=== PATIENT | male | born 1985 | race Caucasian/White ===

== ENCOUNTER 2020-11-08 11:52 | Emergency (ER) | payer OTHER, SELFPAY ==
--- NOTE | 2020-11-08 12:23 | RAD REPORT ---
EXAM DESCRIPTION: CT - Head Brain Wo Cont - 11/08/2020 12:10 pm CLINICAL HISTORY: Alteration of awareness/confusion COMPARISON: None TECHNIQUE: Computed axial tomography of the head was obtained. IV contrast was not requested. All CT scans are performed using dose optimization technique as appropriate and may include automated exposure control or mA/KV adjustment according to patient size. FINDINGS: An intracranial bleed is not seen . The ventricles are normal in caliber. No extra-axial fluid collection is noted. Empty sella turcica Fluid within the sinuses/ mastoids is not seen. IMPRESSION: No acute intracranial abnormality is seen. If patient's symptoms persist MRI of the bra in would be recommended.
[2020-11-08] MEDS ORDERED: NA CHLORIDE 0.9% 1,000 ML ONE (12:27)
[2020-11-08 12:43] LABS: Absolute Lymphocytes (CBC) 2.1 K/uL (0.7-4.9); Basophils % 1.2 % (0-1.3); Hematocrit 46.1 % (39.6-49.0); Lymphocytes % 19.3 % (15.3-44.8); MPV 9.4 fL (7.6-11.3); RBC Red Blood Cell Count 5.13 M/uL (4.33-5.43)
[2020-11-08 12:45] LABS: Protime INR 1.1
[2020-11-08 12:56] LABS: ALT/SGPT 85 U/L (12-78); AST/SGOT 44 U/L (15-37); Albumin 4.1 g/dL (3.4-5.0); Alkaline Phosphatase 88 U/L (45-117); BUN Blood Urea Nitrogen 12 mg/dL (7-18); Bicarbonate 26 mmol/L (21-32); Bilirubin Direct 0.2 mg/dL (0-0.2); Bilirubin Total 0.8 mg/dL (0.2-1.0); Glucose Level 97 mg/dL (74-106); Potassium 4.8 mmol/L (3.5-5.1); Protein, Total 8.1 g/dL (6.4-8.2); Sodium Level 137 mmol/L (136-145); Troponin (Emerg Dept Use Only) < 0.02 ng/mL (0.0-0.045)
[2020-11-08 14:20] LABS: Urine Blood Negative (Negative); Urine Glucose Negative (Negative); Urine Protein 1+ (Negative); Urine Specific Gravity 1.015 (1.005-1.030)
[2020-11-08 14:45] LABS: Barbiturates NEGATIVE (NEGATIVE); Benzodiazepines NEGATIVE (NEGATIVE); Cocaine NEGATIVE (NEGATIVE); METHAMPHETAM NEGATIVE (NEGATIVE); Methadone NEGATIVE (NEGATIVE); Opiates NEGATIVE (NEGATIVE); Phencyclidine NEGATIVE (NEGATIVE); THC Cannibis NEGATIVE (NEGATIVE)
--- NOTE | 2020-11-08 15:34 | ER ---
Nurse's Notes [facility] Name: Qasim Lyn Age: 35 yrs Sex: Male : 1985 Arrival Date: 11/08/2020 Time: 11:53 Bed 5 Private MD: Diagnosis: Syncope and collapse Presentation: 11/08 11:53 Chief complaint: EMS states: Toned out for unresponsive in vehicle at [place] parking lot, hb BGL 68, improved after oral glucose but remains confused. Reported smoking meth a couple day ago. Coronavirus screen: At this time, the client does not indicate any symptoms associated with coronavirus-19. Ebola Screen: No symptoms or risks identified at this time. Initial Sepsis Screen: Does the patient meet any 2 criteria? No. Patient's initial sepsis screen is negative. Does the patient have a suspected source of infection? No. Patient's initial sepsis screen is negative. Risk Assessment: Do you want to hurt yourself or someone else? Patient reports no desire to harm self or others. Onset of symptoms was November 08, 2020. 11:53 Method Of Arrival: EMS: [facility] hb 11:53 Acuity: MELONIE 2 hb Historical: - Allergies: 11:55 No Known Allergies; hb - Immunization history:: Adult Immunizations up to date. - Social history:: Smoking status: Patient denies any tobacco usage or history of. Screenin:57 Abuse screen: Denies threats or abuse. Denies injuries from another. Nutritional hb screening: On. Tuberculosis screening: No symptoms or risk factors identified. Fall Risk Total Magallanes Fall Scale indicates Low Risk Score (25-44 pts). Fall prevention measures have been instituted. Placed close to Nursing Station Frequent Obs/Assesments occuring As available Patient and Family Educated on Fall Prevention Program and strategies. Assessment: 11:58 General: Appears in no apparent distress. Behavior is calm, cooperative. Pain: Denies hb pain. Neuro: Level of Consciousness is obeys commands, lethargic, Oriented to person, place, situation. Cardiovascular: Capillary refill < 3 seconds Patient's skin is warm and dry. Rhythm is sinus tachycardia. Respiratory: Respiratory effort is even, unlabored, Respiratory pattern is regular, symmetrical. GI: No signs and/or symptoms were reported involving the gastrointestinal system. : No signs and/or symptoms were reported regarding the genitourinary system. EENT: No signs and/or symptoms were reported regarding the EENT system. Derm: Skin is pink, warm \T\ dry. Musculoskeletal: No signs and/or symptoms reported regarding the musculoskeletal system. 13:00 Reassessment: Patient appears in no apparent distress at this time. Patient and/or hb family updated on plan of care and expected duration. Pain level reassessed. Patient is alert, oriented x 3, equal unlabored respirations, skin warm/dry/pink. 14:14 Reassessment: Patient appears in no apparent distress at this time. Patient and/or hb family updated on plan of care and expected duration. Pain level reassessed. Patient is alert, oriented x 3, equal unlabored respirations, skin warm/dry/pink. 15:15 Reassessment: Patient appears in no apparent distress at this time. Patient and/or hb family updated on plan of care and expected duration. Pain level reassessed. Patient is alert, oriented x 3, equal unlabored respirations, skin warm/dry/pink. 16:15 Reassessment: Patient appears in no apparent distress at this time. Patient and/or hb family updated on plan of care and expected duration. Pain level reassessed. Patient is alert, oriented x 3, equal unlabored respirations, skin warm/dry/pink. Vital Signs: 11:53 BP 143 / 89; Pulse 98; Resp 16; Temp 97.8; Pulse Ox 100% on R/A; Pain 0/10; hb 12:59 BP 123 / 81; Pulse 85; Resp 19; Pulse Ox 97% on R/A; hb 14:14 BP 134 / 85; Pulse 79; Resp 17; Pulse Ox 99% on R/A; hb 15:00 BP 126 / 86; Pulse 77; Resp 15; Pulse Ox 99% ; hb 16:00 BP 138 / 88; Pulse 75; Resp 17; Pulse Ox 100% on R/A; hb ED Course: 11:53 Patient arrived in ED. hb 11:55 Triage completed. hb 11:55 Bright Metzger PA is PHCP. [facility] 11:55 Milan López MD is Attending Physician. [facility] 11:55 Arm band placed on. hb 11:57 Patient has correct armband on for positive identification. Placed in gown. Bed in low hb position. Call light in reach. Side rails up X2. 12:06 Sunni Kent, RN is Primary Nurse. hb 12:09 CT Head Brain wo Cont In Process Unspecified. EDMS 12:16 Inserted saline lock: 20 gauge in right antecubital area, using aseptic technique. hb Blood collected. 13:50 Acetaminophen Sent. sv 16:35 No provider procedures requiring assistance completed. hb 16:35 IV discontinued, intact, bleeding controlled, No redness/swelling at site. hb Administered Medications: 12:32 Drug: NS 0.9% 1000 ml Route: IV; Rate: 1 bolus; Site: right antecubital; hb 13:32 Follow up: Response: No adverse reaction; IV Status: Completed infusion; IV Intake: hb 1000ml Intake: 13:32 IV: 1000ml; Total: 1000ml. hb Outcome: 15:34 Discharge ordered by MD. humphrey 16:35 Discharged to home ambulatory, with family. hb 16:35 Condition: stable 16:35 Discharge instructions given to patient, Instructed on discharge instructions, follow up and referral plans. medication usage, Demonstrated understanding of instructions, follow-up care, medications. 16:52 Patient left the ED. Signatures: Dispatcher [employer] Xuan Bach, RN SESAR Bright Metzger PA PA jmm Smirch, Shelby, RN RN Sunni Kent, RN RN hb
--- NOTE | 2020-11-08 15:34 | EDPHYS ---
Physician Documentation [facility] Name: Qasim Lyn Age: 35 yrs Sex: Male : 1985 Arrival Date: 11/08/2020 Time: 11:53 Bed 5 Private MD: ED Physician Milan López HPI: 11/08 11:55 This 35 yrs old Male presents to ER via EMS with complaints of Altered Mental jmm Status. 11:55 The patient presents with decreased mental status. Onset: The symptoms/episode jmm began/occurred today. Possible causes: drug use, amphetamines. Associated signs and symptoms: Pertinent positives: confusion, Pertinent negatives: shortness of breath. This is a 35 year old male with a history of htn that presents to the ED via ems. According to EMS patient had a decreased level of responsiveness in his car. BGL was 68. Patient is currently alert. Admits to drug use (Methamphetamines) approx 3 days ago. . Historical: - Allergies: 11:55 No Known Allergies; hb - Immunization history:: Adult Immunizations up to date. - Social history:: Smoking status: Patient denies any tobacco usage or history of. ROS: 11:55 Constitutional: Negative for fever, chills, and weight loss, Cardiovascular: Negative jmm for chest pain, palpitations, and edema, Respiratory: Negative for shortness of breath, cough, wheezing, and pleuritic chest pain, Abdomen/GI: Negative for abdominal pain, nausea, vomiting, diarrhea, and constipation. 11:55 Neuro: Positive for altered mental status. 11:55 All other systems are negative. Exam: 11:55 Constitutional: This is a well developed, well nourished patient who is awake, alert, jmm and in no acute distress. Head/Face: atraumatic. Eyes: EOMI, no conjunctival erythema appreciated ENT: Moist Mucus Membranes Neck: Trachea midline, Supple Chest/axilla: Normal chest wall appearance and motion. Cardiovascular: Regular rate and rhythm. No edema appreciated Respiratory: Normal respirations, no respiratory distress appreciated Abdomen/GI: Non distended, soft Back: Normal ROM Skin: General appearance color normal MS/ Extremity: Moves all extremities, no obvious deformities appreciated, no edema noted to the lower extremities Neuro: Awake and alert, normal gait Psych: Behavior is normal, Mood is normal, Patient is cooperative and pleasant 15:00 ECG was reviewed by the Attending Physician. [facility] Vital Signs: 11:53 BP 143 / 89; Pulse 98; Resp 16; Temp 97.8; Pulse Ox 100% on R/A; Pain 0/10; hb 12:59 BP 123 / 81; Pulse 85; Resp 19; Pulse Ox 97% on R/A; hb 14:14 BP 134 / 85; Pulse 79; Resp 17; Pulse Ox 99% on R/A; hb 15:00 BP 126 / 86; Pulse 77; Resp 15; Pulse Ox 99% ; hb 16:00 BP 138 / 88; Pulse 75; Resp 17; Pulse Ox 100% on R/A; hb MDM: 11:55 Patient medically screened. [facility] 15:32 Data reviewed: vital signs, nurses notes. Counseling: I had a detailed discussion with [facility] the patient and/or guardian regarding: the historical points, exam findings, and any diagnostic results supporting the discharge/admit diagnosis, lab results, radiology results, the need for outpatient follow up, to return to the emergency department if symptoms worsen or persist or if there are any questions or concerns that arise at home. ED course: Patient is alert and non toxic in appearance. Neuro intact. Alert and non toxic in appearance in the ED. Labs, imaging unremarkable. patient is otherwise given strict return precautions. patient understood and agrees with the plan of care. . 11/08 11:58 Order name: Acetaminophen [facility] 11/08 11:58 Order name: Basic Metabolic Panel; Complete Time: 13:17 [facility] 11/08 11:58 Order name: CBC with Diff; Complete Time: 12:46 [facility] 11/08 11:58 Order name: ETOH Level; Complete Time: 12:57 [facility] 11/08 11:58 Order name: Hepatic Function; Complete Time: 13:17 [facility] 11/08 11:58 Order name: PT-INR; Complete Time: 13:17 [facility] 11/08 11:58 Order name: Ptt, Activated; Complete Time: 13:17 [facility] 11/08 11:58 Order name: Salicylate; Complete Time: 12:57 [facility] 11/08 11:58 Order name: Urine Drug Screen; Complete Time: 14:47 [facility] 11/08 11:58 Order name: Troponin (emerg Dept Use Only); Complete Time: 13:17 [facility] 11/08 11:58 Order name: CT Head Brain wo Cont; Complete Time: 12:25 [facility] 11/08 11:59 Order name: Acetaminophen Level; Complete Time: 13:17 [facility] 11/08 14:20 Order name: Urine Dipstick-Ancillary; Complete Time: 14:44 [facility] 11/08 11:58 Order name: EKG; Complete Time: 11:59 [facility] 11/08 11:58 Order name: EKG - Nurse/Tech; Complete Time: 12:32 [facility] 11/08 11:58 Order name: IV Saline Lock; Complete Time: 12:32 [facility] 11/08 11:58 Order name: Labs collected and sent; Complete Time: 12:32 [facility] 11/08 11:58 Order name: Urine Dipstick-Ancillary (obtain specimen); Complete Time: 14:20 [facility] EC:00 Rate is 87 beats/min. Rhythm is regular. QRS [place] is Normal. MD interval is normal. QRS jmm interval is normal. QT interval is normal. No Q waves. T waves are Normal. No ST changes noted. Reviewed by me. Administered Medications: 12:32 Drug: NS 0.9% 1000 ml Route: IV; Rate: 1 bolus; Site: right antecubital; hb 13:32 Follow up: Response: No adverse reaction; IV Status: Completed infusion; IV Intake: hb 1000ml Disposition: 11/08/20 15:34 Discharged to Home. Impression: Syncope and collapse. - Condition is Stable. - Discharge Instructions: Syncope. - Medication Reconciliation Form, Thank You Letter, Antibiotic Education, Prescription Opioid Use, Work release form form. - Follow up: Private Physician; When: 2 - 3 days; Reason: Recheck today's complaints, Continuance of care, Re-evaluation by your physician. Addendum: 11/11/2020 09:29 Co-signature as Attending Physician, Milan López MD I agree with the assessment and c woodard plan of care. Signatures: Dispatcher [employer] Milan Marroquin MD MD cha Mickail, Joel, PA PA jmm Smirch, Shelby, Sunni Thomas RN, RN RN Corrections: (The following items were deleted from the chart) 11/08 12:07 11:58 Suicide Screening ([place]) ordered. emelia em 16:52 15:34 11/08/2020 15:34 Discharged to Home. Impression: Syncope and collapse. Condition ss is Stable. Forms are Medication Reconciliation Form, Thank You Letter, Antibiotic Education, Prescription Opioid Use. Follow up: Private Physician; When: 2 - 3 days; Reason: Recheck today's complaints, Continuance of care, Re-evaluation by your physician. emelia
[2020-11-08 16:59] VITALS: TEMP 97.8
[2020-11-08 17:04] VITALS: BP 138/88; O2SAT 100
--- NOTE | 2020-11-09 10:38 | EKG ---
Test Date: 2020-11-08 Test Time: 12:24:31 Professional Caster: HB MEASUREMENT RESULTS: Intervals: Rate: 87 MA: 202 QRSD: 88 QT: 354 QTc: 425 [place]: P: 21 MA: 202 QRS: 7 T: 23 INTERPRETIVE STATEMENTS: Normal sinus rhythm Normal ECG No previous ECG available for comparison Electronically Signed On 11-09-20 10:36:43 CDT by Tristan Cota
== END 2020-11-08 16:52 | disposition home or self-care (01) ==
LOC: ER 11:52
DX: R55 Syncope and collapse (principal)
CPT/HCPCS: 36415; 70450; 80048; 80076; 80307; 80320; 80329; 81003; 84484; 85025; 85610; 85730; 93005; 96360; 99284; J7030

== ENCOUNTER 2021-01-30 10:45 | Inpatient (IN) | payer SELFPAY ==
[2021-01-30 11:48] LABS: Urine Blood 1+ (Negative); Urine Glucose Trace (Negative); Urine Protein 3+ (Negative); Urine Specific Gravity >=1.030 (1.005-1.030)
--- NOTE | 2021-01-30 11:59 | RAD REPORT ---
EXAM DESCRIPTION: CT - Head Brain Wo Cont - 01/30/2021 11:47 am CLINICAL HISTORY: Alteration of awareness/confusion COMPARISON: None TECHNIQUE: Computed axial tomography of the head was obtained. IV contrast was not requested. All CT scans are performed using dose optimization technique as appropriate and may include automated exposure control or mA/KV adjustment according to patient size. FINDINGS: An intracranial bleed is not seen . The ventricles are normal in caliber. No extra-axial fluid collection is noted. 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 Empty sella turcica Fluid within the sinuses/ mastoids is not seen. IMPRESSION: No acute intracranial abnormality is seen. If patient's symptoms persist MRI of the bra in would be recommended.
[2021-01-30 12:16] LABS: Absolute Lymphocytes (CBC) 1.2 K/uL (0.7-4.9); Basophils % 0.7 % (0-1.3); Hematocrit 51.5 % (39.6-49.0); Lymphocytes % 8.9 % (15.3-44.8); MPV 8.5 fL (7.6-11.3); RBC Red Blood Cell Count 5.58 M/uL (4.33-5.43)
[2021-01-30 12:19] LABS: Protime INR 1.08
[2021-01-30 12:35] LABS: Barbiturates NEGATIVE (NEGATIVE); Benzodiazepines POSITIVE (NEGATIVE); Cocaine NEGATIVE (NEGATIVE); METHAMPHETAM NEGATIVE (NEGATIVE); Methadone NEGATIVE (NEGATIVE); Opiates NEGATIVE (NEGATIVE); Phencyclidine NEGATIVE (NEGATIVE); THC Cannibis NEGATIVE (NEGATIVE)
[2021-01-30 12:53] LABS: AST/SGOT 244 U/L (15-37); Albumin 4.1 g/dL (3.4-5.0); Alkaline Phosphatase 91 U/L (45-117); BUN Blood Urea Nitrogen 14 mg/dL (7-18); Bicarbonate 20 mmol/L (21-32); Bilirubin Direct 0.3 mg/dL (0-0.2); Glucose Level 189 mg/dL (74-106); Potassium 3.8 mmol/L (3.5-5.1); Protein, Total 7.9 g/dL (6.4-8.2); Sodium Level 137 mmol/L (136-145); Troponin I < 0.02 ng/mL (0.0-0.045)
[2021-01-30 12:54] LABS: ALT/SGPT 313 U/L (12-78)
[2021-01-30 13:04] LABS: Blood Morphology Comment NOT SEEN (NOT SEEN); Platelet Estimate ADEQ; White Blood Cell Scan OK (OK)
[2021-01-30] MEDS ORDERED: NA CHLORIDE 0.9% 1,000 ML ONE ×3 (13:21→18:18)
--- NOTE | 2021-01-30 13:35 | RAD REPORT ---
EXAM DESCRIPTION: US - Abdomen Exam Limited - 01/30/2021 1:23 pm CLINICAL HISTORY: elevated liver enzymes COMPARISON: Abdomen Exam Complete dated 02/09/2018 FINDINGS: The gallbladder demonstrates no gallstones. No pericholecystic fluid or gallbladder wall t hickening. The common bile duct is normal measuring 2 millimeter. The liver demonstrates no findings of intrahepatic biliary dilatation. IMPRESSION: Negative for cholelithiasis or acute cholecystitis. No biliary ductal dilatation.
--- NOTE | 2021-01-30 15:39 | ER ---
Nurse's Notes [facility] Name: Qasim Lyn Age: 35 yrs Sex: Male : 1985 Arrival Date: 01/30/2021 Time: 11:10 Bed 7 Private MD: Diagnosis: Other seizures Presentation: 01/30 11:27 Chief complaint: EMS states: pt was at work and experienced seizure like activity. pt tr6 has no known diagnosis of seizures in the past, but did have an episode similar. pt postictal per EMS on arrival. currently pt aox3. Coronavirus screen: At this time, unable to obtain information related to travel outside the [place] Ebola Screen: No symptoms or risks identified at this time. Initial Sepsis Screen: Does the patient meet any 2 criteria? No. Patient's initial sepsis screen is negative. Does the patient have a suspected source of infection? No. Patient's initial sepsis screen is negative. Risk Assessment: Do you want to hurt yourself or someone else? Patient reports no desire to harm self or others. Onset of symptoms was January 30, 2021. 11:27 Method Of Arrival: EMS tr6 11:27 Acuity: MELONIE 2 tr6 Triage Assessment: 11:27 General: Appears in no apparent distress. Behavior is calm, cooperative, appropriate tr6 for age. Pain: Denies pain. EENT: No deficits noted. Neuro: No deficits noted. Level of Consciousness is awake, alert, obeys commands, Oriented to person, place, time, situation, Appropriate for age. Cardiovascular: Rhythm is sinus tachycardia. Respiratory: No deficits noted. GI: No deficits noted. : No deficits noted. Derm: No deficits noted. Musculoskeletal: No deficits noted. - Immunization history:: Adult Immunizations up to date. - Social history:: Smoking status: unknown. Screenin:30 Abuse screen: Denies threats or abuse. Denies injuries from another. Nutritional tr6 screening: No deficits noted. Tuberculosis screening: No symptoms or risk factors identified. Fall Risk Secondary diagnosis (15 points) seizures. Assessment: 11:31 Reassessment: see triage assessment. tr6 14:00 Reassessment: Patient and/or family updated on plan of care and expected duration. Pain tr6 level reassessed. Patient is alert, oriented x 3, equal unlabored respirations, skin warm/dry/pink. Patient denies pain at this time. Patient states feeling better. Patient states symptoms have improved. 15:00 Reassessment: pt states that he is comfortable to ambulate to fathers vehicle as he is tr6 feeling better. pt refused wheelchair at this time. pt AOx3 and reports that he feels much better than arrival to ED. 16:53 Reassessment: pt noted to be having a seizure in parking lot, pt placed on stretcher iw and transported to ER bed 7, post ictal at this time, pt is talking but still confused. 17:15 Reassessment: PT RETURNED FROM STAT CT. NOW AOx4, NO S/S SZ ACTIVITY. bp 17:15 Neuro: Level of Consciousness is awake, alert, obeys commands, Oriented to Appropriate bp for age Speech is normal. 18:10 Reassessment: Patient appears in no apparent distress at this time. No changes from hb previously documented assessment. Patient and/or family updated on plan of care and expected duration. Pain level reassessed. 19:51 Reassessment: Patient and/or family updated on plan of care and expected duration. Pain ea level reassessed. Patient is alert, oriented x 3, equal unlabored respirations, skin warm/dry/pink. 21:15 Reassessment: Patient appears in no apparent distress at this time. Patient and/or jb4 family updated on plan of care and expected duration. Pain level reassessed. Patient is alert, oriented x 3, equal unlabored respirations, skin warm/dry/pink. Vital Signs: 11:27 BP 159 / 104; Pulse 128; Resp 20; Temp 98.8; Pulse Ox 95% on R/A; tr6 12:00 BP 158 / 109; Pulse 126; Resp 20; Pulse Ox 98% on R/A; tr6 14:00 BP 140 / 95; Pulse 122; Resp 18; Pulse Ox 96% on R/A; tr6 17:00 BP 144 / 86; Pulse 127; Resp 20; Pulse Ox 96% ; bp 18:00 BP 142 / 85; Pulse 121; Resp 17; Pulse Ox 99% ; bp 21:30 BP 158 / 114; Pulse 106; Resp 16; Pulse Ox 100% on R/A; jb4 ED Course: 11:10 Patient arrived in ED. tr6 11:11 Patient has correct armband on for positive identification. Placed in gown. Bed in low mh5 position. Call light in reach. Side rails up X2. Seizure precautions initiated. Pillow given. monitor worker on. Pulse ox on. NIBP on. 11:25 Milan Ralph PA is PHCP. cp 11:25 Milan López MD is Attending Physician. cp 11:27 Lashaun Hines, RN is Primary Nurse. tr6 11:29 Triage completed. tr6 11:30 Resting quietly. tr6 11:30 No provider procedures requiring assistance completed. tr6 11:30 Maintain EMS IV. Dressing intact. Good blood return noted. Site clean \T\ dry. Gauge \T\ tr 6 site: 20 R AC. 11:47 CT Head Brain wo Cont In Process Unspecified. EDMS 13:23 US Abdomen Limited: liver/gallbladder In Process Unspecified. EDMS 15:37 Dakota Munoz MD is Referral Physician. cp 16:35 IV discontinued, intact, bleeding controlled, No redness/swelling at site. Pressure tr6 dressing applied. 16:52 Primary Nurse role handed off by Lashaun Hines, SESAR iw 17:09 CT Traumagram (Head C Spine CAP W Con) In Process Unspecified. EDMS 17:13 Stephon Gale, SESAR is Primary Nurse. bp 18:20 Mitul Nguyen is Hospitalizing Provider. cp Administered Medications: 12:17 Drug: NS 0.9% 1000 ml Route: IV; Rate: 1 bolus; Site: right antecubital; tr6 17:28 Follow up: IV Status: Completed infusion; IV Intake: 1000ml bp 17:30 Drug: NS 0.9% 1000 ml Route: IV; Rate: 125 ml/hr; Site: right antecubital; bp 17:30 Drug: Ativan (LORazepam) 2 mg Route: IVP; Site: right antecubital; bp 18:42 Follow up: Response: No adverse reaction bp 17:30 Drug: Keppra (levETIRAcetam) 1000 mg Route: IV; Rate: calculated rate; Site: right bp antecubital; 18:41 Follow up: IV Status: Completed infusion; IV Intake: 100ml bp 18:45 Drug: Tylenol 1000 mg Route: PO; bp 21:29 Follow up: Response: No adverse reaction ea Intake: 17:28 IV: 1000ml; Total: 1000ml. bp 18:41 IV: 100ml; Total: 1100ml. bp Outcome: 15:38 Discharge ordered by MD. cp 16:35 Discharged to home ambulatory, with family, pt refused wheelchair. father to pick pt up tr6 16:35 Condition: stable 16:35 Discharge instructions given to patient, Instructed on discharge instructions, follow up and referral plans. safety practices, Demonstrated understanding of instructions, follow-up care. 16:36 Patient left the ED. tr6 18:23 Decision to Hospitalize by Provider. cp 22:30 Patient left the ED. jb4 Signatures: Dispatcher [employer] EDMS Kath Guardado, RN RN Milan Naik, Sunni Dalton cp, RN RN Cleve Miguel RN RN Katarina Thompson Elena, RN RN ea Peltier, Brian, RN RN bp Ramnanan, Tiffany, RN RN tr6
--- NOTE | 2021-01-30 15:39 | EDPHYS ---
Physician Documentation [facility] Name: Qasim Lyn Age: 35 yrs Sex: Male : 1985 Arrival Date: 01/30/2021 Time: 11:10 Bed 7 Private MD: ED Physician Milan López HPI: 01/30 11:30 This 35 yrs old Male presents to ER via EMS with complaints of Seizure. cp 11:30 The patient's problem is reported as an apparent seizure, with the patient having a cp single isolated episode, Episodes lasted an unknown amount of time. Brief loss of consciousness. Patient was not incontinent of bowel or bladder. Post-ictal symptoms: confusion. Onset: The symptoms/episode began/occurred just prior to arrival. 11:30 Duration: This was a single incident. cp 11:30 Context: occurred at work, occurred while the patient was sitting at desk. Possible cp contributing factors include: lack of sleep and patient reports stopping Neurontin medication 2 months ago. Patient's baseline: Neuro: alert and fully oriented, Motor: no deficits, Ambulation: walks without assistance, Speech: normal, The patient has a previous history of seizure. - Immunization history:: Adult Immunizations up to date. - Social history:: Smoking status: unknown. ROS: 11:35 Neuro: Positive for history of seizure. cp 11:35 Constitutional: Negative for body aches, chills, fever, poor PO intake. cp 11:35 Cardiovascular: Negative for chest pain, palpitations. 11:35 Respiratory: Negative for cough, shortness of breath, wheezing. 11:35 Abdomen/GI: Negative for abdominal pain, nausea, vomiting, and diarrhea. 11:35 Eyes: Negative for injury, pain, redness, and discharge. cp 11:35 Neck: Negative for pain with movement, pain at rest, stiffness. 11:35 : Negative for urinary symptoms. 11:35 Skin: Negative for rash. Exam: 11:40 Constitutional: The patient appears in no acute distress, alert, awake, cp non-diaphoretic, non-toxic, well developed, well nourished, obese. 11:40 Head/Face: Normocephalic, atraumatic. cp 11:40 Eyes: Periorbital structures: appear normal, Pupils: equal, round, and reactive to light and accomodation, Extraocular movements: intact throughout, Conjunctiva: normal, no exudate, no injection, Sclera: no appreciated abnormality, Lids and lashes: appear normal, bilaterally. 11:40 ENT: External ear(s): are unremarkable, Ear canal(s): are normal, clear, TM's: dullness, bilaterally, Nose: is normal, Mouth: Lips: moist, Oral mucosa: moist, Tongue: superficial bite injury noted to left lateral tongue, Posterior pharynx: Airway: no evidence of obstruction, patent, Tonsils: are normal in appearance, Uvula: midline, swelling, is not appreciated, erythema, is not appreciated. 11:40 Neck: ROM/movement: is normal, is supple, without pain, no range of motions limitations, no meningismus, no nuchal rigidity. 11:40 Chest/axilla: Inspection: normal, Palpation: is normal, no crepitus, no tenderness. 11:40 Cardiovascular: Rate: tachycardic, Rhythm: regular, Edema: is not appreciated, JVD: is cp not appreciated. 11:40 Respiratory: the patient does not display signs of respiratory distress, Respirations: cp normal, no use of accessory muscles, no retractions, labored breathing, is not present, Breath sounds: are clear throughout, no decreased breath sounds, no stridor, no wheezing. 11:40 Abdomen/GI: Inspection: abdomen appears normal, Palpation: abdomen is soft and non-tender, in all quadrants. 11:40 Skin: cellulitis, is not appreciated, no rash present. 11:40 Neuro: Orientation: to person, place \\T\\ time. Mentation: able to follow commands, slow to respond, Cerebellar function: is grossly normal, Motor: moves all fours, strength is normal, Sensation: is normal. 12:20 Radiologist reports: no acute findings cp 12:35 ECG was reviewed by the Attending Physician. cp 18:28 ECG was reviewed by the Attending Physician. cp Vital Signs: 11:27 BP 159 / 104; Pulse 128; Resp 20; Temp 98.8; Pulse Ox 95% on R/A; tr6 12:00 BP 158 / 109; Pulse 126; Resp 20; Pulse Ox 98% on R/A; tr6 14:00 BP 140 / 95; Pulse 122; Resp 18; Pulse Ox 96% on R/A; tr6 17:00 BP 144 / 86; Pulse 127; Resp 20; Pulse Ox 96% ; bp 18:00 BP 142 / 85; Pulse 121; Resp 17; Pulse Ox 99% ; bp 21:30 BP 158 / 114; Pulse 106; Resp 16; Pulse Ox 100% on R/A; jb4 MDM: 11:28 Patient medically screened. cp 12:00 Differential diagnosis: CVA, TIA, metabolic disorder, drug effects, seizure. 16:55 ED course: Patient with observed seizure while in parking lot. Rushed back into ED via stretcher. Reexamination: Posterior scalp contusion on exam, patient appears post-ictal, PERRLA, neck exam w/o crepitus, Cardiac: Tachycardia, regular rhythm. 18:30 Data reviewed: vital signs, nurses notes, lab test result(s), EKG, radiologic studies, cp CT scan, I have discussed the patient's presentation/case with the attending Emergency Department Physician; and as a result, I will admit patient. 18:30 Physician consultation: Dakota Munoz MD was called at 18:20, was contacted at 18:20, regarding consult, patient's condition. 01/30 11:25 Order name: Acetaminophen; Complete Time: 13: 01/30 11:25 Order name: Basic Metabolic Panel; Complete Time: 13: 01/30 13:01 Interpretation: Normal except: CO2 20; GLUC 189; GFR 74; CA 8.4. 01/30 11:25 Order name: CBC with Diff; Complete Time: 13:05 01/30 18:27 Interpretation: Normal except: WBC 13.90; RBC 5.58; HCT 51.5; ALDAIR% 86.3; NEUT A 12.0; cp LYM% 8.9. 01/30 11:25 Order name: ETOH Level; Complete Time: 12:49 01/30 11:25 Order name: Hepatic Function; Complete Time: 13: 01/30 13:02 Interpretation: Normal except: AST 244; ALT 313. 01/30 11:25 Order name: PT-INR; Complete Time: 13:01 01/30 11:25 Order name: Ptt, Activated; Complete Time: 13:01 01/30 11:25 Order name: Salicylate; Complete Time: 12:49 01/30 11:25 Order name: Urine Drug Screen; Complete Time: 12:49 01/30 12:49 Interpretation: Normal except: BZO POSITIVE. 01/30 11:25 Order name: Troponin I; Complete Time: 13:01 01/30 11:48 Order name: Urine Dipstick-Ancillary; Complete Time: 12:14 [facility] 01/30 12:14 Interpretation: Normal except: UKET 1+; UBLD 1+; UPROT 3+. 01/30 12:18 Order name: CBC Smear Scan; Complete Time: 13:05 [facility] 01/30 16:57 Order name: Basic Metabolic Panel; Complete Time: 17:39 01/31 17:40 Interpretation: Normal except: CA 8.0. 01/30 16:57 Order name: CBC with Diff; Complete Time: 17:39 01/31 17:39 Interpretation: Normal except: WBC 17.60; PLT 182; ALDAIR% 76.3; LYM% 12.4; NEUT A 13.4; cp MNA 1.9. 01/30 11:25 Order name: EKG; Complete Time: 11:26 01/30 11:25 Order name: EKG - Nurse/Tech; Complete Time: 13:01 01/30 11:25 Order name: IV Saline Lock; Complete Time: 11:49 01/30 11:25 Order name: Labs collected and sent; Complete Time: 11:49 01/30 11:28 Order name: CT Head Brain wo Cont; Complete Time: 12:14 01/30 13:04 Order name: US Abdomen Limited: liver/gallbladder; Complete Time: 14:47 01/30 16:57 Order name: Type And Screen; Complete Time: 17:39 01/30 16:57 Order name: CT Traumagram (Head C Spine CAP W Con); Complete Time: 17:37 01/30 16:57 Order name: EKG; Complete Time: 16:58 01/30 17:08 Order name: COVID-19 : Document "Date of Symptom Onset" if Symptomatic. 01/30 20:54 Order name: SARS-COV-2 RT PCR; Complete Time: 17:39 [facility] 01/30 11:25 Order name: Suicide Screening ([place]); Complete Time: 11:49 01/30 11:25 Order name: Urine Dipstick-Ancillary (obtain specimen); Complete Time: 11:49 cp 01/30 11:25 Order name: Seizure Precautions; Complete Time: 11:27 cp 01/30 16:57 Order name: Seizure Precautions; Complete Time: 17:28 cp 01/30 16:57 Order name: Labs collected and sent; Complete Time: 17:28 cp 01/30 16:57 Order name: EKG - Nurse/Tech; Complete Time: 18:03 cp EC:35 Rate is 123 beats/min. Rhythm is regular. FL interval is normal. QRS interval is cp normal. QT interval is normal. T waves are Inverted in lead aVR. Interpreted by me. Reviewed by me. 18:28 Rate is 112 beats/min. Rhythm is regular. FL interval is normal. QRS interval is cp normal. QT interval is normal. T waves are Inverted in lead aVR. Interpreted by me. Reviewed by me. Administered Medications: 12:17 Drug: NS 0.9% 1000 ml Route: IV; Rate: 1 bolus; Site: right antecubital; tr6 17:28 Follow up: IV Status: Completed infusion; IV Intake: 1000ml bp 17:30 Drug: NS 0.9% 1000 ml Route: IV; Rate: 125 ml/hr; Site: right antecubital; bp 17:30 Drug: Ativan (LORazepam) 2 mg Route: IVP; Site: right antecubital; bp 18:42 Follow up: Response: No adverse reaction bp 17:30 Drug: Keppra (levETIRAcetam) 1000 mg Route: IV; Rate: calculated rate; Site: right bp antecubital; 18:41 Follow up: IV Status: Completed infusion; IV Intake: 100ml bp 18:45 Drug: Tylenol 1000 mg Route: PO; bp 21:29 Follow up: Response: No adverse reaction ea Disposition: 01/31 06:29 Co-signature as Attending Physician, Milan López MD I agree with the assessment and paty plan of care. Disposition Summary: 01/30/21 18:23 Hospitalization Ordered Hospitalization Status: Observation cp Provider: Mitul Nguyen cp Location: Telemetry/MedSurg (observation)(01/30/21 18:23) cp Condition: Stable(01/30/21 18:23) cp Problem: new(01/30/21 18:23) cp Symptoms: have improved(01/30/21 18:23) cp Bed/Room Type: Standard cp Room Assignment: 221(01/30/21 21:35) tl1 Diagnosis - Other seizures(01/30/21 18:23) cp Forms: - Medication Reconciliation Form cp - SBAR form cp Signatures: Dispatcher [employer] EDMS Milan López MD MD cha Lasagna, Tonya RN RN tl1 Milan Ralph PA PA cp Stephon Gale RN RN bp Ramnanan, Tiffany, RN RN tr6 Mary Ellen Beth RN, ea Corrections: (The following items were deleted from the chart) 01/30 13:06 13:05 Normal except: WBC 13.90; RBC 5.58; HCT 51.5. cp cp 13:06 13:05 Normal except: WBC 13.90; RBC 5.58; HCT 51.5; ALDAIR% 86.3. cp cp 16:58 15:38 Home cp cp 16:58 15:38 new cp cp 16:58 15:38 have improved cp cp 16:58 15:38 Stable cp cp 16:58 15:38 Other seizures cp cp 18:27 13:06 Normal except: WBC 13.90; RBC 5.58; HCT 51.5; ALDAIR% 86.3; NEUT A 12.0. cp cp 21:35 18:23 cp tl1 01/31 21:52 01/30 16:55 ED course: Patient with observed seizure while in parking lot. Rushed back cp into ED via stretcher. cp
[2021-01-30] MEDS ORDERED: LORazepam 2 MG/ML VIAL ONE ×2 (17:10→18:18)
--- NOTE | 2021-01-30 17:27 | RAD REPORT ---
EXAM DESCRIPTION: CT - Head C Spine Cap W Con - 01/30/2021 5:09 pm CLINICAL HISTORY: Trauma, head and neck injury. Chest, abdomen and pelvis pain. seizure COMPARISON: Head Brain Wo Cont dated 01/30/2021 TECHNIQUE: CT head without contrast. CT cervical spine without contrast with coronal and sagittal reformatted images. CT chest, abdomen and pelvis with contrast with coronal and sagittal reformatted images of the spine. All CT scans are performed using dose optimization technique as appropriate and may include automated exposure control or mA/KV adjustment according to patient size. FINDINGS: CT HEAD WITHOUT CONTRAST: No intracranial hemorrhage, hydrocephalus or extra-axial fluid collection. No areas of brain edema o r midline shift. Left parietal scalp hematoma. Cerebral atrophy with chronic small vessel ischemic ch anges. The paranasal sinuses and mastoids are clear. The calvarium is intact. CT CERVICAL SPINE without CONTRAST: No fracture or subluxation. The prevertebral soft tissues are normal in thickness. CT CHEST, ABDOMEN, PELVIS with CONTRAST: The lungs are clear.No pneumothorax or pericardial/pleural fluid. No evidence of intra-abdominal visceral injury, free fluid or free air.. Hepatic steatosis. No concerning pelvic findings. No fractures. IMPRESSION: 1. No acute intracranial abnormality. Left parietal scalp hematoma but no underlying sku ll fracture. 2. No cervical spine fracture or malalignment. 3. No evidence of significant trauma to the chest, abdomen, or pelvis.
[2021-01-30] MEDS ORDERED: LEVETIRACETAM 500 MG/5 ML VIAL IV ONE (18:18)
[2021-01-30] MEDS ORDERED: NA CHLORIDE 0.9% 100 ML ONE (18:18)
[2021-01-30] MEDS ORDERED: ACETAMINOPHEN 500 MG TAB ONE (19:09)
--- NOTE | 2021-01-30 19:42 | P.HP ---
Certification for Inpatient Patient admitted to: Observation With expected LOS: <2 Midnights Patient will require the following post-hospital care: None Practitioner: I am a practitioner with admitting privileges, knowledge of patient current condition, hospital course, and medical plan of care. Services: Services provided to patient in accordance with Admission requirements found in Title 42 Section 412.3 of the Code of Federal Regulations Patient History Date of Service: 01/30/21 Reason for admission: Seizure History of Present Illness: 35-year-old male without any significant past medical history presents emergency department for seizure. Patient with seizures x2 today, reports he may have had a seizure approximately 3 months ago but this was unwitnessed and he is not sure. Patient was evaluated in the emergency department, CT scan unremarkable labs significant for white blood cell count 13.9 AST 244 ALT 313 CO2 20 glucose 189+ for benzodiazepinepatient prescribed. Case was discussed with neurology who recommended Keppra, EEG, MRI epilepsy protocol. Patient back to baseline mental status at this time. - Past Medical/Surgical History -: none -: None Psychosocial/ Personal History: Employed, lives with family - Family History Father -: Heart disease, Hypertension, Diabetes - Social History Smoking Status: Never smoker Alcohol use: Yes CD- Drugs: No Caffeine use: Yes Place of Residence: Home Review of Systems Unremarkable Physical Examination - Physical Exam General: Alert, In no apparent distress, Oriented x3 HEENT: Atraumatic, PERRLA, Mucous membr. moist/pink, EOMI, Sclerae nonicteric Neck: Supple, 2+ carotid pulse no bruit, No LAD, Without JVD or thyroid abnormality Respiratory: Clear to auscultation bilaterally, Normal air movement Cardiovascular: Regular rate/rhythm, Normal S1 S2 Gastrointestinal: Normal bowel sounds, No tenderness Musculoskeletal: No tenderness Integumentary: No rashes Neurological: Normal gait, Normal speech, Normal strength at 5/5 x4 extr, Normal tone, Normal affect Lymphatics: No axilla or inguinal lymphadenopathy - Studies Laboratory Data (last 24 hrs) 01/30/21 12:03: PT 12.4, INR 1.08, APTT 26.0 01/30/21 12:03: WBC 13.90 H, Hgb 17.3, Hct 51.5 H, Plt Count 236 01/30/21 12:03: Sodium 137, Potassium 3.8, BUN 14, Creatinine 1.13, Glucose 189 H, Total Bilirubin 1.0, AST 244 H, ALT 313 H*, Alkaline Phosphatase 91, Troponin I < 0.02 Assessment and Plan - Plan Assessment: Seizure: Elevated aminotransferase levels: Hyperglycemia: Plan: Seizure: Case was discussed with neurology recommendation for Keppra 500 mg p.o. twice daily, EEG, MRI epilepsy protocol. Seizure precautions in place, as needed Ativan for seizures. Appreciate further input from neurology. Elevated aminotransferase levels: Patient had abdominal ultrasound in the ER, negative for cholecystitis, CBD normal. Will recheck with lab tomorrow morning. Hyperglycemia: Blood sugar 189, will obtain A1c, family history of diabetes. DVT PPX: Lovenox Code status: Full Discharge Plan: Home Plan to discharge in: 24 Hours - Advance Directives Does patient have a Living Will: No Does patient have a Durable POA for Healthcare: No - Code Status/Comfort Care Code Status Assessed: Yes (Full code) Critical Care: No Time Spent Managing Pts Care (In Minutes): 55
[2021-01-30] MEDS ORDERED: ONDANSETRON 4 MG/2 ML VIAL IV PRN (23:05)
[2021-01-30] MEDS ORDERED: ACETAMINOPHEN 500 MG TAB PO PRN (23:05)
[2021-01-30] MEDS ORDERED: LORazepam 2 MG/ML VIAL IV PRN (23:05)
[2021-01-30 23:10] LABS: Absolute Lymphocytes (CBC) 2.2 K/uL (0.7-4.9); Basophils % 0.6 % (0-1.3); Hematocrit 46.3 % (39.6-49.0); Lymphocytes % 12.4 % (15.3-44.8); MPV 8.1 fL (7.6-11.3); RBC Red Blood Cell Count 4.96 M/uL (4.33-5.43)
[2021-01-30 23:18] VITALS: BMI 43.9
[2021-01-30 23:18] LABS: BUN Blood Urea Nitrogen 10 mg/dL (7-18); Bicarbonate 23 mmol/L (21-32); Glucose Level 98 mg/dL (74-106); Potassium 3.6 mmol/L (3.5-5.1); Sodium Level 137 mmol/L (136-145)
[2021-01-31] MEDS: levETIRAcetam 500 MG TAB PO SCH ×2 (00:11→09:34)
[2021-01-31] MEDS: NA CHLORIDE 0.9% 1,000 ML IV SCH ×2 (00:11→17:15)
[2021-01-31 00:40] LABS: Urine Appearance CLEAR (Clear); Urine Bilirubin NEGATIVE (Negative); Urine Blood NEGATIVE (Negative); Urine Color YELLOW (Yellow); Urine Glucose NEGATIVE (Negative); Urine Protein NEGATIVE (Negative); Urine Specific Gravity 1.015 (1.005-1.030); Urine pH 6.5 (5.0-7.0)
[2021-01-31 00:42] LABS: Urine Microscopic Reflex NO UMIC
[2021-01-31 05:54] LABS: Absolute Lymphocytes (CBC) 2.8 K/uL (0.7-4.9); Basophils % 0.6 % (0-1.3); Lymphocytes % 20.6 % (15.3-44.8); MPV 8.2 fL (7.6-11.3); RBC Red Blood Cell Count 4.88 M/uL (4.33-5.43)
[2021-01-31 06:22] LABS: Albumin 3.7 g/dL (3.4-5.0); Bilirubin Total 1.4 mg/dL (0.2-1.0); Magnesium 2.2 mg/dL (1.8-2.4); Potassium 3.5 mmol/L (3.5-5.1); Protein, Total 7.2 g/dL (6.4-8.2); Thyroid Stimulating Hormone 3.11 uIU/mL (0.360-3.740)
[2021-01-31] MEDS ORDERED: ENOXAPARIN 40 MG/0.4 ML SQ SCH (09:00)
[2021-01-31] MEDS ORDERED: POTASSIUM CL SA 10 MEQ TAB PO ONE (09:00)
[2021-01-31 09:23] VITALS: O2SAT 97
--- NOTE | 2021-01-31 13:47 | EEG ---
CHART: [id number] TEST ID#: [id number] DATE OF STUDY: 01/31/2021 THE EEG WAS RECORDED PORTABLE IN THE PATIENT'S ROOM ON A 17 CHANNEL MACHINE. ELECTRODES WERE APPLIED IN THE USUAL MANNER USING THE INTERNATIONAL 10-20 SYSTEM. THE WAKING BACKGROUND RHYTHM IN THIS RECORD CONSISTS OF VERY WELL DEVELOPED AND WELL ORGANIZED WAVES OF 10 HZ., MAXIMAL IN THE POSTERIOR HEAD REGIONS WHICH ATTENUATE NORMALLY WITH EYE OPENING. LOW-VOLTAGE 18-22 HZ ACTIVITY IS EXPRESSED IN THE FRONTAL REGIONS. THERE ARE NO FOCAL OR LATERALIZING FEATURES. NO EPILEPTIFORM ACTIVITY APPEARS. SLEEP DID NOT OCCUR. HYPERVENTILATION WAS NOT PERFORMED. PHOTIC STIMULATION PRODUCED GOOD DRIVING BILATERALLY. IMPRESSION: NORMAL EEG FOR THE AGE OF THE PATIENT IN [place].
--- NOTE | 2021-01-31 14:33 | RAD REPORT ---
EXAM DESCRIPTION: MRI - Brain Wo Cont - 01/31/2021 2:22 pm CLINICAL HISTORY: epilepsy protocol COMPARISON: No comparisons TECHNIQUE: Sagittal T1-weighted images were obtained along with axial PD, heavily T2-weighted and T2 -FLAIR images. Axial DWI and ADC mapping sequences were also obtained along with T1 weighted and T2 f at saturation sequences. FINDINGS: No intracranial hemorrhage, mass or acute infarction. There is no edema or shift of midlin e structures. No extra-axial fluid collections. Degroot-matter/white matter junction is preserved. Signa l voids are seen as a normal finding in the major intracranial vessels. No medial temporal lobe foca l abnormality or asymmetry. No heterotopic degroot matter or other developmental abnormality seen. T1 hyperintense signal in the spl enium of the corpus callosum may be a small lipoma. This is not seen as significant. Thin rim of pitu itary tissue is seen along the floor the nonenlarged sella turcica. No tonsillar ectopia. No globe or orbital content abnormality seen. Mastoid air cells and paranasal sinuses are clear. Posterior parietal scalp hematoma again noted. The underlying bone is intact. IMPRESSION: Negative non-contrast MRI of the Brain for acute or significant finding.
[2021-01-31 17:25] VITALS: BP 131/72; TEMP 97.5
--- NOTE | 2021-01-31 18:21 | P.DS ---
Admission Date: 01/31/21 Discharge Date: 01/31/21 Disposition: ROUTINE DISCHARGE Discharge Condition: FAIR Reason for Admission: Seizure - Problems (1) Seizures Current Visit: Yes Status: Acute (2) Obstructive sleep apnea Current Visit: Yes Status: Acute (3) Anxiety disorder Current Visit: Yes Status: Acute (4) Morbid obesity due to excess calories Current Visit: Yes Status: Acute (5) Hypertension Current Visit: Yes Status: Acute Brief History of Present Illness: 35-year-old morbidly obese man with a history of obstructive sleep apnea and hypertension presents emergency department for seizure. Patient had witnessed seizures x2. He also reported possible seizure episode [address] head done in the emergency department is unremarkable. Patient given Keppra in the ED and admitted for further management. Hospital Course: Patient admitted to the medical floor and treated with Keppra for seizures. No more seizure episodes during the hospital stay. MRI of the brain did not show any acute disease. EEG did not show any spikes to explain the seizures. Patient seen and evaluated by neurology-Dr. Munoz who recommended maintenance oral Keppra for seizures. Patient uses CPAP during sleep and he reports compliance with it. His liver enzymes are elevated. CT abdomen suggests hepatic steatosis. Patient clinically stable for discharge. He is informed not to drive for 3 months per [place] laws. He was also told to inform his employer and occupational health about the seizures. He is informed to follow with Dr. Munoz in the office next week for further evaluation. Vital Signs/Physical Exam: Temp Pulse Resp BP Pulse Ox 97.5 F 94 H 20 131/72 97 01/31/21 16:00 01/31/21 16:00 01/31/21 16:00 01/31/21 16:00 01/31/21 16:00 General: Alert, In no apparent distress, Oriented x3 HEENT: Mucous membr. moist/pink Neck: JVD not distended Respiratory: Clear to auscultation bilaterally, Normal air movement Cardiovascular: No edema, Regular rate/rhythm, Normal S1 S2 Gastrointestinal: Normal bowel sounds, Soft and benign, Non-distended Musculoskeletal: No swelling, No tenderness Integumentary: No rashes, No erythema Neurological: Normal speech, Normal strength at 5/5 x4 extr, Cranial nerves 3-12 intact Laboratory Data at Discharge: WBC 13.40 K/uL (4.3-10.9) H D 07/30/21 05:06 Hgb 15.3 g/dL (13.6-17.9) 01/31/21 05:06 Hct 45.0 % (39.6-49.0) 01/31/21 05:06 Plt Count 189 K/uL (152-406) 01/31/21 05:06 PT 12.4 SECONDS (9.5-12.5) 01/30/21 12:03 INR 1.08 01/30/21 12:03 APTT 26.0 SECONDS (24.3-36.9) 01/30/21 12:03 Sodium 138 mmol/L (136-145) 01/31/21 05:06 Potassium 3.5 mmol/L (3.5-5.1) 01/31/21 05:06 BUN 9 mg/dL (7-18) 01/31/21 05:06 Creatinine 1.00 mg/dL (0.55-1.3) 01/31/21 05:06 Glucose 99 mg/dL (74-106) 01/31/21 05:06 Magnesium 2.2 mg/dL (1.8-2.4) 01/31/21 05:06 Total Bilirubin 1.4 mg/dL (0.2-1.0) H 01/31/21 05:06 AST 114 U/L (15-37) H D 01/31/21 05:06 ALT 211 U/L (12-78) H D 01/31/21 05:06 Alkaline Phosphatase 85 U/L (45-117) 01/31/21 05:06 Troponin I < 0.02 ng/mL (0.0-0.045) 01/30/21 12:03 Home Medications: RX: ALPRAZolam [Alprazolam] 1 mg PO PRN 01/30/21 RX: Buspirone HCl [Buspar] 10 mg PO BID 01/30/21 RX: Losartan Potassium 50 mg PO BEDTIME 01/30/21 RX: Propranolol [Inderal LA*] 80 mg PO BID 01/30/21 RX: Sumatriptan [Imitrex*] 50 mg PO PRN 01/30/21 RX: Zolpidem Tartrate 10 mg PO BEDTIME 01/30/21 RX: levETIRAcetam [Keppra*] 500 mg PO BID #60 tab 01/31/21 New Medications: RX: levETIRAcetam [Keppra*] 500 mg PO BID #60 tab Physician Discharge Instructions: Please don't drive for the next 3 months., as required by [place] Law. You need to inform your employer and occupation health department about the seizure disorder. Diet: AHA Activity: Seizure precautions Followup: NONE,NONE [Primary Care Provider] - Time spent managing pt's care (in minutes): 35
--- NOTE | 2021-01-31 18:48 | CON ---
Consultation called because of seizures. History Of Present Illness: Mr. Lyn is a 35-year-old right-handed patient with class 3 obesity, chronic obstructive sleep apnea, who came to [facility] after what was an apparent seizure. He was in his vehicle, sitting in his truck when the event occurred. He said he actually d oes not recall any details of the episode, but said someone found him unresponsive in his truck and t brittney summoned emergency medical services. The patient came to [facility]. His initial francois p was unremarkable including laboratory studies, except for slightly elevated white blood cell count with neutrophil shift that was [place] 29860% neutrophils. Coagulation panel unremarkable. Chemistri es showed an elevated AST of 244, elevated ALT of 313, direct bilirubin elevated at 0.8, calcium low at 8.4, glucose was 189. Sodium, potassium, chloride, BUN, creatinine all unremarkable and urine joceline lysis showed 1+ ketone, 1+ blood, 3+ protein. Toxicology screen positive for benzodiazepines. COVID -19 test was negative. The patient received hydration, was actually discharged to go home, and while outside waiting for his transportation, he had a witnessed seizure reported as generalized tonic-mati shukri, fell, but did not injure his head. A brain MRI was just completed. He did have CT scan trauma series which showed no acute ischemic or hemorrhagic changes. No fractures, no bleeding. His EEG do ne yesterday was completely normal. No epileptiform activity recorded. The patient says he has not had additional seizure-like activities since hospitalization. He was loaded with Keppra 1 g and put on 500 mg twice daily. He has DVT prophylaxis with Lovenox 40 mg subcutaneously daily. Past Medical History: Chronic obstructive pulmonary disease and prior possible seizure earlier this year, although the patient is unable to give any details and prior to that, he denied any other possi ble seizure history. Family History: Negative for seizures, but positive heart disease, hypertension, diabetes in father. Social History: He does admit to alcohol use, but no tobacco or IV drug use. Review of Systems: He denies any recent fevers, chills, nausea, vomiting, myalgias, arthralgias, rash, headache, weight change. No psychiatric complaints. No gastrointestinal issues or other problems. Physical Examination: Vital Signs: Blood pressure 133/74, pulse 89, respiratory rate 20, temperature 98.9, oxygen saturati on 95%. General: Mr. Lyn is resting in bed. He is in no acute distress. HEENT: He is normocephalic, atraumatic. Sclerae are anicteric. Oropharynx is pink and moist. Neck: Supple. Chest: Clear. Heart: Regular. Extremities: Show no clubbing, cyanosis, or edema. Neurologic: He is alert and oriented to person, place, situation, and time. Cranial nerves 2 throug h 12 intact. Motor exam is intact in upper and lower extremities. Gait: Normal stance and right ar m swing. Reflexes are symmetric in the upper and lower extremities. Assessment: Mr. Lyn is a 35-year-old patient with recent onset seizures of unclear etiology. He does have COPD and had some sleep deprivation and reports of prior possible seizure. 1.Keppra 500 mg twice daily. 2.We will check blood level of Keppra in 1 week. 3.The patient may be discharged home. Follow up with Dr. Munoz. May have long-term monitoring a s needed. ANGELICA/LIEN Voice ID: [id number] Report ID: [id number]
== END 2021-01-31 19:04 | disposition home or self-care (01) | DRG 101 ==
LOC: ER 10:45 → ERHOLD 19:07 → 2ND 21:44 → OBSVTOIN 01-31 09:12
PROVIDERS: ADMIT Internal Medicine; ATTEND Internal Medicine
PROC: 5A09357 Assistance with Respiratory Ventilation, Less than 24 Consecutive Hours, Continuous Positive Airway Pressure (ICD-10-PCS; principal; 2021-01-31)
DX: G40.89 Other seizures (principal); Z68.41 Body mass index [BMI] 40.0-44.9, adult; E66.01 Morbid (severe) obesity due to excess calories; G47.33 Obstructive sleep apnea (adult) (pediatric); J44.9 Chronic obstructive pulmonary disease, unspecified; F41.9 Anxiety disorder, unspecified; K76.0 Fatty (change of) liver, not elsewhere classified; I10 Essential (primary) hypertension; R73.9 Hyperglycemia, unspecified; R74.01 Elevation of levels of liver transaminase levels; Z83.3 Family history of diabetes mellitus; Z79.899 Other long term (current) drug therapy; Z20.822 Contact with and (suspected) exposure to COVID-19
CPT/HCPCS: 36415; 70450; 70551; 71260; 72125; 74177; 76705; 80048; 80053; 80076; 80307; 80320; 80329; 81003; 83036; 83735; 84439; 84443; 84484; 85025; 85610; 85730; 86850; 86900; 86901; 93005; 94660; 95816; 96361; 96365; 96375; 99284; A9577; G0378; J1650; J1953; J7030; Q9967; U0003

== ENCOUNTER 2021-04-14 11:47 | Emergency (ER) | payer SELFPAY ==
--- NOTE | 2021-04-14 13:05 | RAD REPORT ---
EXAM DESCRIPTION: CT - Head Brain Wo Cont - 04/14/2021 12:52 pm CLINICAL HISTORY: DIZZINESS COMPARISON: Head Brain Wo Cont dated 01/30/2021; Brain Wo Cont dated 01/31/2021 TECHNIQUE: Axial 5 mm thick images of the head were obtained without IV contrast. All CT scans are performed using dose optimization technique as appropriate and may include automated exposure control or mA/KV adjustment according to patient size. FINDINGS: No intracranial hemorrhage, mass, edema or shift of mid-line structures. No acute infarcti on changes seen. No cortical edema or sulcal effacement. Mild bifrontal lobe volume loss pattern is s een probably normal variant for the patient. Ventricles are normal. Small lipoma or focal fatty tissu es are present adjacent to the splenium of the corpus callosum also a normal variant. Mastoid air cells and visualized portions of the paranasal sinuses are clear. No acute bony findings. IMPRESSION: Negative non-contrast CT head examination for acute finding Above detailed findings are stable from prior MRI and CT imaging.
--- NOTE | 2021-04-14 13:12 | RAD REPORT ---
EXAM DESCRIPTION: Olu Single View04/14/2021 1:03 pm CLINICAL HISTORY: Dizziness COMPARISON: 2019 FINDINGS: The lungs appear clear of acute infiltrate. The heart is probably upper limits normal siz e IMPRESSION: No acute abnormalities displayed
[2021-04-14 13:17] LABS: Absolute Lymphocytes (CBC) 2.7 K/uL (0.7-4.9); Basophils % 0.7 % (0-1.3); Lymphocytes % 26.1 % (15.3-44.8); MPV 8.8 fL (7.6-11.3); RBC Red Blood Cell Count 4.71 M/uL (4.33-5.43)
[2021-04-14 13:19] LABS: ALT/SGPT 72 U/L (12-78); AST/SGOT 64 U/L (15-37); Albumin 4.1 g/dL (3.4-5.0); Alkaline Phosphatase 63 U/L (45-117); BUN Blood Urea Nitrogen 15 mg/dL (7-18); Bicarbonate 26 mmol/L (21-32); Bilirubin Direct 0.2 mg/dL (0-0.2); Bilirubin Total 0.8 mg/dL (0.2-1.0); Glucose Level 112 mg/dL (74-106); Magnesium 2.2 mg/dL (1.8-2.4); NT PRO-BNP 35 pg/mL (<125); Potassium 4.3 mmol/L (3.5-5.1); Protein, Total 7.4 g/dL (6.4-8.2); Protime INR 1.15; Sodium Level 139 mmol/L (136-145); Troponin (Emerg Dept Use Only) < 0.02 ng/mL (0.0-0.045)
--- NOTE | 2021-04-14 15:48 | ER ---
Nurse's Notes [facility] Name: Qasim Lyn Age: 35 yrs Sex: Male : 1985 Arrival Date: 04/14/2021 Time: 11:48 Bed 19 Private MD: Diagnosis: Weakness;Dizziness and giddiness Presentation: 04/14 12:02 Chief complaint: Patient states: "I was at work and I started feeling very fatigued and aa5 like it was hard to focus". Pt denies headache, denies numbness/tingling. Pt denies nausea/vomiting/diarrhea. Coronavirus screen: At this time, the client does not indicate any symptoms associated with coronavirus-19. Ebola Screen: Patient negative for fever greater than or equal to 101.5 degrees Fahrenheit, and additional compatible Ebola Virus Disease symptoms. Onset of symptoms was April 14, 2021. 12:02 Method Of Arrival: Ambulatory aa5 12:02 Acuity: MELONIE 3 aa5 12:04 Initial Sepsis Screen: Does the patient meet any 2 criteria? No. Patient's initial aa5 sepsis screen is negative. Does the patient have a suspected source of infection? No. Patient's initial sepsis screen is negative. Risk Assessment: Do you want to hurt yourself or someone else? Patient reports no desire to harm self or others. Triage Assessment: 13:46 General: Appears in no apparent distress. Behavior is calm, cooperative, appropriate tc5 for age. Pain: Denies pain. Historical: - Allergies: 12:03 No Known Allergies; aa5 - PMHx: 12:03 Hypertensive disorder; Seizure; aa5 - PSHx: 12:03 None; aa5 - Immunization history:: Client reports receiving the 2nd dose of the Covid vaccine. - Social history:: Smoking status: Patient denies any tobacco usage or history of. Screenin:14 Abuse screen: Denies threats or abuse. Denies injuries from another. Nutritional tc5 screening: No deficits noted. Tuberculosis screening: No symptoms or risk factors identified. Fall Risk None identified. Assessment: 12:11 Reassessment: Patient appears in no apparent distress at this time. General: Appears in tc5 no apparent distress. Behavior is calm, cooperative, appropriate for age. Pain: Denies pain. Musculoskeletal: Reports pt reports feeling extremely tired today at work, no other symptoms. states he had a seizure 3 months ago dues to withdraw from gabapentin. Pt states he used to take gabapentin for his fibromyalgia in his chest. 14:44 General: pt sleeping, snoring, has long periods of apnea, desats to low 80's, HR down tc5 to low 40's wakes to verbal. Dwain MENESES aware. pt advises his has sleep apnea and wears a cpap, also reports he has insomnia and does this when he is having trouble with the insomnia, but states he though he slept good last night.. Vital Signs: 12:04 BP 103 / 65; Pulse 60; Resp 18 S; Temp 97.0(TE); Pulse Ox 97% on R/A; Weight 140.61 kg aa5 (R); Height 5 ft. 11 in. (180.34 cm) (R); 12:14 BP 129 / 71; Pulse 61; Resp 16; Pulse Ox 99% ; tc5 13:46 BP 104 / 62; Pulse 51; Resp 16; Pulse Ox 97% 2 lpm ; tc5 15:54 BP 119 / 81; Pulse 52; Resp 16; Pulse Ox 94% ; Pain 0/10; tc5 12:04 Body Mass Index 43.23 (140.61 kg, 180.34 cm) aa5 ED Course: 11:48 Patient arrived in ED. as 12:02 Arm band placed on. aa5 12:03 Triage completed. aa5 12:05 Mercedes Sierra, SESAR is Primary Nurse. tc5 12:06 Dwain Merlos NP is PHCP. pm1 12:06 Candelario Prince MD is Attending Physician. pm1 12:52 CT Head Brain wo Cont In Process Unspecified. EDMS 12:59 Flu Sent. es2 12:59 Basic Metabolic Panel Sent. es2 12:59 Magnesium Sent. es2 12:59 Liver (Hepatic) Function Sent. es2 12:59 CBC with Automated Diff Sent. es2 12:59 Basic Metabolic Panel Sent. es2 12:59 CBC with Diff Sent. es2 12:59 LFT's Sent. es2 12:59 Magnesium Sent. es2 12:59 Troponin (emerg Dept Use Only) Sent. es2 12:59 PT-INR Sent. es2 12:59 NT PRO-BNP Sent. es2 13:03 XRAY Chest (1 view) In Process Unspecified. EDMS 15:53 IV discontinued, intact, bleeding controlled, No redness/swelling at site. Pressure tc5 dressing applied. Administered Medications: 14:30 Drug: NS 0.9% 1000 ml Route: IV; Rate: 1000 ml; Site: right antecubital; tc5 15:53 Follow up: Response: No adverse reaction; IV Status: Completed infusion; IV Intake: tc5 1000ml Intake: 15:53 IV: 1000ml; Total: 1000ml. tc5 Outcome: 15:48 Discharge ordered by MD. pm1 16:07 Patient left the ED. tc5 Signatures: Dispatcher [employer] EDMS Jeri Grant Audri, RN RN aa5 Dwain Merlos NP 2ND PRESSMAN pm1 Elizabeth Ruvalcaba RN RN es2 Mercedes Sierra RN RN tc5 Corrections: (The following items were deleted from the chart) 13:25 12:59 CORONAVIRUS+MR.LAB.BRZ drawn and sent. es2 EDMS
--- NOTE | 2021-04-14 15:48 | EDPHYS ---
Physician Documentation [facility] Name: Qasim Lyn Age: 35 yrs Sex: Male : 1985 Arrival Date: 04/14/2021 Time: 11:48 Bed 19 Private MD: ED Physician Candelario Prince HPI: 04/14 13:09 This 35 yrs old Male presents to ER via Ambulatory with complaints of pm1 Weakness, Dizziness. 13:09 The patient presents to the emergency department with weakness of the entire body, pm1 generalized weakness. Onset: The symptoms/episode began/occurred this morning. Context: occurred at home. Associated signs and symptoms: Pertinent positives: dizziness, Pertinent negatives: fever, headache, nausea, Vomiting. Severity of symptoms: in the emergency department the symptoms are unchanged. Patient's baseline: Neuro: alert and fully oriented, Motor: no deficits, Ambulation: walks without assistance, Speech: normal, The patient has a previous history of Sleep apnea. Current symptoms: Generalized weakness. The patient has experienced similar episodes in the past, chronically, but today's symptoms are worse. The patient has not recently seen a physician. Historical: - Allergies: 12:03 No Known Allergies; aa5 - PMHx: 12:03 Hypertensive disorder; Seizure; aa5 - PSHx: 12:03 None; aa5 - Immunization history:: Client reports receiving the 2nd dose of the Covid vaccine. - Social history:: Smoking status: Patient denies any tobacco usage or history of. ROS: 13:09 Constitutional: Negative for fever, chills, and weight loss, Cardiovascular: Negative pm1 for chest pain, palpitations, and edema, Respiratory: Negative for shortness of breath, cough, wheezing, and pleuritic chest pain, Abdomen/GI: Negative for abdominal pain, nausea, vomiting, diarrhea, and constipation, Back: Negative for injury and pain, MS/Extremity: Negative for injury and deformity, Skin: Negative for injury, rash, and discoloration. 13:09 Neuro: Positive for Generalized weakness and dizziness. 13:09 All other systems are negative. Exam: 13:09 Constitutional: This is a well developed, well nourished patient who is awake, alert, pm1 and in no acute distress. Head/Face: Normocephalic, atraumatic. 13:09 Back: No spinal tenderness. No costovertebral tenderness. Full range of motion. Skin: Warm, dry with normal turgor. Normal color with no rashes, no lesions, and no evidence of cellulitis. MS/ Extremity: Pulses equal, no cyanosis. Neurovascular intact. Full, normal range of motion. 13:09 Eyes: Exam is negative for acute changes, Extraocular movements: no acute changes. 13:09 ENT: Exam is negative for acute changes, Mouth: no acute changes, Lips: normal, moist, Oral mucosa: normal, pink and intact, moist. 13:09 Cardiovascular: Exam negative for acute changes, Rate: normal, Rhythm: regular, Pulses: no pulse deficits are appreciated, Heart sounds: normal. 13:09 Respiratory: Exam negative for acute changes, respiratory distress, shortness of breath, Breath sounds: are clear throughout. 13:09 Abdomen/GI: Exam negative for acute changes, Inspection: obese Palpation: abdomen is soft and non-tender, in all quadrants. 13:09 Neuro: Exam negative for acute changes, Orientation: is normal, Mentation: is normal, Cranial nerves: CN II- XII are normal as tested, Cerebellar function: normal finger to nose testing, Motor: moves all fours, strength is 5/5 in all extremities. Vital Signs: 12:04 BP 103 / 65; Pulse 60; Resp 18 S; Temp 97.0(TE); Pulse Ox 97% on R/A; Weight 140.61 kg aa5 (R); Height 5 ft. 11 in. (180.34 cm) (R); 12:14 BP 129 / 71; Pulse 61; Resp 16; Pulse Ox 99% ; tc5 13:46 BP 104 / 62; Pulse 51; Resp 16; Pulse Ox 97% 2 lpm ; tc5 15:54 BP 119 / 81; Pulse 52; Resp 16; Pulse Ox 94% ; Pain 0/10; tc5 12:04 Body Mass Index 43.23 (140.61 kg, 180.34 cm) aa5 MDM: 12:08 Patient medically screened. pm1 15:47 Data reviewed: vital signs. Data interpreted: Pulse oximetry: on room air is 97 %. pm1 Interpretation: normal. Counseling: I had a detailed discussion with the patient and/or guardian regarding: the historical points, exam findings, and any diagnostic results supporting the discharge/admit diagnosis, lab results, radiology results, the need for outpatient follow up, to return to the emergency department if symptoms worsen or persist or if there are any questions or concerns that arise at home. 04/14 12:18 Order name: Basic Metabolic Panel pm1 04/14 12:18 Order name: CBC with Diff pm1 04/14 12:18 Order name: LFT's pm1 04/14 12:18 Order name: Magnesium pm1 04/14 12:18 Order name: NT PRO-BNP; Complete Time: 13:27 pm1 04/14 12:18 Order name: PT-INR; Complete Time: 13:56 pm1 04/14 12:18 Order name: Troponin (emerg Dept Use Only); Complete Time: 13:27 pm1 04/14 12:18 Order name: Basic Metabolic Panel; Complete Time: 13:27 EDMS 04/14 12:18 Order name: CBC with Automated Diff; Complete Time: 13:56 EDMS 04/14 12:18 Order name: Liver (Hepatic) Function; Complete Time: 13:27 EDMS 04/14 12:18 Order name: Magnesium; Complete Time: 13:27 EDMS 04/14 12:44 Order name: Flu; Complete Time: 13:27 pm1 04/14 12:18 Order name: XRAY Chest (1 view); Complete Time: 13:18 pm1 04/14 12:18 Order name: EKG; Complete Time: 12:20 pm1 04/14 12:18 Order name: Cardiac monitoring; Complete Time: 12:59 pm1 04/14 12:18 Order name: EKG - Nurse/Tech; Complete Time: 12:59 pm1 04/14 12:18 Order name: IV Saline Lock; Complete Time: 12:59 pm1 04/14 12:18 Order name: Labs collected and sent; Complete Time: 12:59 pm1 04/14 12:18 Order name: O2 Per Protocol; Complete Time: 13:02 pm1 04/14 12:18 Order name: O2 Sat Monitoring; Complete Time: 12:59 pm1 04/14 12:18 Order name: CT Head Brain wo Cont; Complete Time: 13:18 pm1 04/14 13:24 Order name: SARS-COV-2 RT PCR; Complete Time: 14:25 EDMS Administered Medications: 14:30 Drug: NS 0.9% 1000 ml Route: IV; Rate: 1000 ml; Site: right antecubital; tc5 15:53 Follow up: Response: No adverse reaction; IV Status: Completed infusion; IV Intake: tc5 1000ml Disposition: 04/15 08:58 Co-signature as Attending Physician, Candelario Prince MD I agree with the assessment and kdr plan of care. Disposition Summary: 04/14/21 15:48 Discharge Ordered Location: Home pm1 Problem: new pm1 Symptoms: have improved pm1 Condition: Stable pm1 Diagnosis - Weakness pm1 - Dizziness and giddiness pm1 Followup: pm1 - With: Emergency Department - When: As needed - Reason: Worsening of condition Followup: pm1 - With: Private Physician - When: 2 - 3 days - Reason: Recheck today's complaints, Continuance of care, Re-evaluation by your physician Discharge Instructions: - Discharge Summary Sheet pm1 - Dizziness pm1 - Weakness pm1 - Form - Return To Work tc5 Forms: - Medication Reconciliation Form pm1 - Thank You Letter pm1 - Antibiotic Education pm1 - Prescription Opioid Use pm1 Signatures: Dispatcher [employer] EDMS Candelario Prince MD MD [facility] Soledad Cintron RN RN aa5 Dwain Merlos, [employer] AUTHORIZATION MANAGER pm1 Mercedes Sierra, RN RN tc5 Corrections: (The following items were deleted from the chart) 04/14 13:25 12:45 CORONAVIRUS+ ordered. EDKY EDMS
[2021-04-14 16:19] VITALS: TEMP 97
[2021-04-14 16:23] VITALS: BP 119/81; O2SAT 94
--- NOTE | 2021-04-15 11:00 | EKG ---
Test Date: 2021-04-14 Test Time: 12:56:16 Solid Die Cutter: JEANIE MEASUREMENT RESULTS: Intervals: Rate: 52 UT: 202 QRSD: 96 QT: 456 QTc: 424 Somis: P: 22 UT: 202 QRS: 7 T: 13 INTERPRETIVE STATEMENTS: Sinus bradycardia Otherwise normal ECG Compared to ECG 01/30/2021 18:24:26 Sinus tachycardia no longer present Electronically Signed On 04-15-21 10:57:03 CDT by Tristan Cota
== END 2021-04-14 16:07 | disposition home or self-care (01) ==
LOC: ER 11:47
DX: R53.1 Weakness (principal); R42 Dizziness and giddiness; Z20.822 Contact with and (suspected) exposure to COVID-19
CPT/HCPCS: 36415; 70450; 71045; 80048; 80076; 83735; 83880; 84484; 85025; 85610; 87804; 93005; 96360; 99283; U0003